=== PATIENT | male | born 1945 | race Caucasian/White ===

== ENCOUNTER 2017-05-06 23:29 | Observation (INO) | payer OTHER ==
[~2017-05-06] VITALS: Ht 185.4 cm; Wt 120.2 kg
[2017-05-06 23:41] VITALS: BP 135/78; PULSE 85; RESP 16; TEMP 97.8; O2SAT 96
[2017-05-06] MEDS ORDERED: ZOCO40TA PO (23:49)
[2017-05-06] MEDS ORDERED: ASPI-110 PO (23:49)
[2017-05-06] MEDS ORDERED: ENOX30P SQ (23:49)
[2017-05-06] MEDS ORDERED: HYDR-3580 PO (23:49)
[2017-05-07] MEDS ORDERED: MAGNESIUM CITRATE SOLN 300 ML BTL PO ONE (00:15)
--- NOTE | 2017-05-07 00:21 | PD ---
HPI Chief Complaint: GI Complaint Time Seen by Provider: 00:14 Travel History International Travel<30 days: No Contact w/Intl Traveler<30days: No Traveled to known affect area: No History of Present Illness HPI The patient is a 71-year-old male that had right hip replacement surgery on the of last month. He has not had a bowel movement since. The patient also has the urge to void but states he cannot. He states he has had feelings that he needs to urinate since 11:00 this morning but has not urinated. He states he also tried a fleets enema this afternoon without result. He states he took MiraLAX yesterday and today for this without result. They also gave him some MiraLAX on the of last . He has been taken hydrocodone 7.5 mg2 tablets every 6 hours. PFSH Past Medical History High Cholesterol: Yes Tetanus Vaccination: > 5 Years Influenza Vaccination: No Social History Alcohol Use: Yes (socially) Tobacco Use: No Substance Use: No Allergies-Medications (Allergen,Severity, Reaction): Coded Allergies: Penicillin (Verified Allergy, Severe, 05/06/17) Reported Meds & Prescriptions Reported Meds & Active Scripts Active Reported Lovenox Inj (Enoxaparin Sodium) 30 Mg/0.3 Ml Syr 30 Mg SQ DAILY Hydrocodone-Acetaminophen 7.5-325 mg Tab 2 Tab PO Q6H PRN Aspirin 81 (Aspirin) 81 Mg Tabdr 81 Mg PO DAILY Zocor (Simvastatin) 40 Mg Tab 40 Mg PO DAILY Review of Systems Except as stated in HPI: all other systems reviewed are Neg Physical Exam Narrative GENERAL: The patient is alert, oriented 3 in minimal apparent distress with his nausea and bladder discomfort. His vital signs are normal. SKIN: Focused skin assessment warm/dry. HEAD: Atraumatic. Normocephalic. EYES: Pupils equal and round. No scleral icterus. No injection or drainage. ENT: No nasal bleeding or discharge. Mucous membranes pink and moist. NECK: Trachea midline. No JVD. CARDIOVASCULAR: Regular rate and rhythm. No murmur appreciated. RESPIRATORY: No accessory muscle use. Clear to auscultation. Breath sounds equal bilaterally. GASTROINTESTINAL: Abdomen soft, non-tender, nondistended. Hepatic and splenic margins not palpable. MUSCULOSKELETAL: No obvious deformities. No clubbing. No cyanosis. No edema. NEUROLOGICAL: Awake and alert. No obvious cranial nerve deficits. Motor grossly within normal limits. Normal speech. PSYCHIATRIC: Appropriate mood and affect; insight and judgment normal. Data Data Last Documented VS Vital Signs Date Time Temp Pulse Resp B/P Pulse Ox O2 Delivery O2 Flow Rate FiO2 05/07/17 01:32 81 18 161/78 95 Room Air 05/06/17 23:41 97.8 Orders Sodium Chlor 0.9% 1000 Ml Inj (Ns 1000 M (05/07/17 00:15) Magnesium Citrate Liq (Citroma Liq) (05/07/17 00:15) Urinary Catheter Insert/Apply (05/07/17 00:21) Urinalysis - C+S If Indicated (05/07/17 00:22) Complete Blood Count With Diff (05/07/17 00:23) Basic Metabolic Panel (Bmp) (05/07/17 00:23) Magnesium (Mg) (05/07/17 01:00) Peg (High)/E-Lyte Liq (Colyte Liq) (05/07/17 02:00) Admit Order (Ed Use Only) (05/07/17 02:00) Ct Abd/Pel W Iv Contrast(Rout) (05/07/17 02:00) Labs Laboratory Tests Test 05/07/17 05/07/17 01:00 01:17 White Blood Count 12.8 TH/MM3 Red Blood Count 4.02 MIL/MM3 Hemoglobin 12.9 GM/DL Hematocrit 37.6 % Mean Corpuscular Volume 93.4 FL Mean Corpuscular Hemoglobin 32.0 PG Mean Corpuscular Hemoglobin 34.2 % Concent Red Cell Distribution Width 11.9 % Platelet Count 266 TH/MM3 Mean Platelet Volume 8.1 FL Neutrophils (%) (Auto) 81.8 % Lymphocytes (%) (Auto) 9.0 % Monocytes (%) (Auto) 7.2 % Eosinophils (%) (Auto) 1.8 % Basophils (%) (Auto) 0.2 % Neutrophils # (Auto) 10.6 TH/MM3 Lymphocytes # (Auto) 1.1 TH/MM3 Monocytes # (Auto) 0.9 TH/MM3 Eosinophils # (Auto) 0.2 TH/MM3 Basophils # (Auto) 0.0 TH/MM3 CBC Comment DIFF FINAL Differential Comment Sodium Level 140 MEQ/L Potassium Level 4.6 MEQ/L Chloride Level 102 MEQ/L Carbon Dioxide Level 29.3 MEQ/L Anion Gap 9 MEQ/L Blood Urea Nitrogen 28 MG/DL Creatinine 1.00 MG/DL Estimat Glomerular Filtration 74 ML/MIN Rate Random Glucose 110 MG/DL Calcium Level 9.2 MG/DL Magnesium Level 1.9 MG/DL Urine Collection Type CATH Urine Color YELLOW Urine Turbidity CLEAR Urine pH 5.5 Urine Specific [place] 1.027 Urine Protein NEG mg/dL Urine Glucose (UA) NEG mg/dL Urine Ketones NEG mg/dL Urine Occult Blood TRACE Urine Nitrite NEG Urine Bilirubin NEG Urine Leukocyte Esterase NEG Urine RBC 4-9 /hpf Urine Squamous Epithelial 0-5 /hpf Cells Urine Mucus OCC /lpf Microscopic Urinalysis Comment CATH-CULT NOT IND MDM Medical Decision Making Medical Screen Exam Complete: Yes Emergency Medical Condition: Yes Medical Record Reviewed: Yes Interpretation(s) The CBC shows a white count of 12,800 with a hemoglobin 12.9 and hematocrit of 37.6 but is otherwise unremarkable. The basic metabolic profile shows a BUN of 28, creatinine 1.0 but is otherwise normal. The magnesium level is 1.9this is normal. The urine shows trace occult blood, 4-9 red cells but is otherwise normal and culture is not indicated. Differential Diagnosis Opioid-induced ileus, opioid-induced bladder atony, SBOhighly unlikely, dehydration, electrolyte disorder, renal insufficiency Narrative Course The patient has opiate-induced ileus as well as bladder atony. He had almost 600 cc in his bladder. There is no evidence of obstruction, electrolyte disorder or renal insufficiency or other cause of his atony. At about 0230 the patient had a large bowel movement. He felt much better afterwards. Physician Communication Physician Communication I discussed the patient with Dr. Engel, the patient will be admitted to her for 23 hour observation. Diagnosis Primary Impression: Adynamic ileus Additional Impression: Bladder atony Admitting Information Admitting Physician Requests: Observation Wayne Benitez MD May 07, 2017 00:21
[2017-05-07 01:14] LABS: AUTOMATED NEUTROPHIL # 10.6 TH/MM3 (1.8-7.7); BASOPHIL % 0.2 % (0.0-2.0); EOSINOPHIL # 0.2 TH/MM3 (0-0.4); EOSINOPHIL % 1.8 % (0.0-4.0); HEMATOCRIT 37.6 % (39.0-51.0); HEMO FLAGS DIFF FINAL; LYMPHOCYTE # 1.1 TH/MM3 (1.0-4.8); MEAN CELL VOLUME 93.4 FL (80.0-100.0); MEAN CORPUSCULAR HGB CONC 34.2 % (32.0-36.0); MONO % 7.2 % (0.0-8.0); NEUT % 81.8 % (16.0-70.0); PLATELET COUNT 266 TH/MM3 (150-450); RED BLOOD COUNT 4.02 MIL/MM3 (4.50-5.90); RED CELL DISTRIBUTION WIDTH 11.9 % (11.6-17.2); WHITE BLOOD COUNT 12.8 TH/MM3 (4.0-11.0)
[2017-05-07 01:19] LABS: POTASSIUM 4.6 MEQ/L (3.5-5.1)
[2017-05-07 01:22] LABS: BLOOD, URINE TRACE (NEG); GLUCOSE,URINE NEG (NEG); KETONE, URINE NEG (NEG); NITRITE,URINE NEG (NEG); PH, URINE 5.5 (5.0-8.5)
[2017-05-07 01:22] LABS: BICARBONATE 29.3 MEQ/L (21.0-32.0)
[2017-05-07 01:30] LABS: METHOD OF COLLECTION CATH; MUCUS URINE OCC /lpf (OCC); URINE COLOR YELLOW (YELLW/STRAW)
[2017-05-07 01:31] LABS: SQUAMOUS EPITHELIAL CELL URINE 0-5 /hpf (0-5)
[2017-05-07 01:32] VITALS: BP 161/78; PULSE 81; RESP 18; O2SAT 95
[2017-05-07 01:32] LABS: COMMENT (UR) CATH-CULT NOT IND; CULTURE IF INDICATED CATH CULTURE NOT IND
[2017-05-07] MEDS: SODIUM CHLOR 0.9% 1000 ML INJ 1,000 ML IV SCH ×4 (01:38→09:04)
[2017-05-07 01:42] LABS: MAGNESIUM 1.9 MG/DL (1.5-2.5)
[2017-05-07] MEDS ORDERED: LACTULOSE SYRUP 20 GM/30 ML CUP PO PRN (02:00)
[2017-05-07] MEDS ORDERED: BISACODYL 10 MG SUPP RECTAL PRN (02:00)
[2017-05-07] MEDS ORDERED: ONDANSETRON HCL 4 MG/2 ML VIAL IVP PRN (02:00)
[2017-05-07] MEDS ORDERED: MAGNESIUM HYDROXIDE SUSP 30 ML CUP PO PRN (02:00)
[2017-05-07] MEDS ORDERED: ACETAMINOPHEN 325 MG TAB PO PRN (02:00)
[2017-05-07] MEDS ORDERED: ACETAMINOPHEN/HYDROcodone 325 MG/7.5 MG TAB PO PRN (02:00)
[2017-05-07] MEDS ORDERED: SENNOSIDES 8.6 MG TAB PO PRN (02:00)
[2017-05-07] MEDS ORDERED: MORPHINE SULFATE 4 MG/ML INJ IV PRN (02:00)
[2017-05-07] MEDS ORDERED: PEG (High)/E-LYTE SOLN 4000 ML BTL PO ONE (02:00)
[2017-05-07] MEDS ORDERED: SODIUM CHLORIDE 0.9% FLUSH 10 ML FLUSH IV FLUSH PRN (02:00)
[2017-05-07] MEDS ORDERED: DIATRIZOATE MEGLUM/DIATRIZOATE SOD 9 ML CUP ONE (02:09)
[2017-05-07] MEDS ORDERED: MORPHINE SULFATE 8 MG/ML INJ IV PUSH PRN (02:30)
[2017-05-07 03:38] VITALS: BP 181/84; PULSE 85; RESP 19; O2SAT 98
[2017-05-07] MEDS ORDERED: IOHEXOL 350 MG/ML 10 ML VIAL (for RAD DIAG) IV ONE (03:49)
[2017-05-07 04:00] VITALS: BP 156/85; PULSE 77; RESP 20; TEMP 97.5; O2SAT 98
--- NOTE | 2017-05-07 04:34 | RADRPT ---
EXAM DATE/TIME: 05/07/2017 03:29 [facility] COMPARISON: No previous studies available for comparison. INDICATIONS : Evaluate for obstruction. Constipation post hip replacement. IV CONTRAST: 100 cc Omnipaque 350 (iohexol) IV ORAL CONTRAST: Prescribed oral contrast ingested. RADIATION DOSE: 22.30 CTDIvol (mGy) MEDICAL HISTORY : None SURGICAL HISTORY : None. ENCOUNTER: Initial ACUITY: 1 month PAIN SCALE: 7/10 LOCATION: Bilateral abdomen. TECHNIQUE: Volumetric scanning of the abdomen and pelvis was performed. Using automated exposure control and ad justment of the mA and/or kV according to patient size, radiation dose was kept as low as reasonably achievable to obtain optimal diagnostic quality images. DICOM format image data is available electro nically for review and comparison. FINDINGS: LOWER LUNGS: The visualized lower lungs are clear. LIVER: Homogeneous density without dilation of the biliary tree. No calcified gallstones. Small low-density in the left lobe. SPLEEN: Normal size without lesion. PANCREAS: Within normal limits. KIDNEYS: Normal in size and shape. There is no mass, stone or hydronephrosis. Parapelvic renal cyst. ADRENAL GLANDS: Within normal limits. VASCULAR: There is no aortic aneurysm. BOWEL/MESENTERY: Mild distention of the stomach filled with fluid. The small bowel and colon demonstrate no acute abno rmality. There is no free intraperitoneal air or fluid. ABDOMINAL WALL: Within normal limits. RETROPERITONEUM: There is no lymphadenopathy. BLADDER: No wall thickening or mass. REPRODUCTIVE: Within normal limits. INGUINAL: There is no lymphadenopathy or hernia. MUSCULOSKELETAL: Right hip replacement. Degenerative changes lower lumbar spine. CONCLUSION: 1. Mild distention of the stomach filled with fluid. No bowel obstruction. 2. Hepatic low-density, likely benign. 3. Bilateral parapelvic renal cysts. 4. Right hip replacement. Yaniv Wakefield MD on May 07, 2017 at 4:28 Board Certified Radiologist. This report was verified electronically.
[2017-05-07 08:00] VITALS: BP 156/79; PULSE 81; RESP 20; TEMP 97.7; O2SAT 96
--- NOTE | 2017-05-07 08:39 | HHI.HP ---
HPI Service [facility] Primary Care Physician Rukhsana Del Rio MD Admission Diagnosis opiate-induced ileus, opioid-induced bladder atony Diagnoses: Chief Complaint: Abdominal pain, constipation Travel History International Travel<30 Days: No Contact w/Intl Traveler <30 Da: No Traveled to Known Affected Are: No History of Present Illness Mr. Ayon is a pleasant 71-year-old male with a history of hyperlipidemia who presented to the emergency department on 05/07/2017 due to abdominal pain and constipation. Patient underwent right total hip arthroplasty on 05/01/2017. He has not had a bowel movement since he underwent hip replacement surgery. Despite taking multiple medications at home he did not have a bowel movement which prompted him to come to the emergency department. Patient received mag citrate and GoLYTELY which caused large bowel movement and subsequently patient felt much better. Patient denies any chest pain, shortness of breath, fever or chills. Currently he feels that he is at his baseline. Wants to go home. Review of Systems Except as stated in HPI: all other systems reviewed are Neg Past Family Social History Past Medical History Hyperlipidemia, osteoarthritis Past Surgical History Hand surgery, recent right hip surgery. Reported Medications Lovenox Inj (Enoxaparin Sodium) 30 Mg/0.3 Ml Syr 30 Mg SQ DAILY Hydrocodone-Acetaminophen 7.5-325 mg Tab 2 Tab PO Q6H PRN Aspirin 81 (Aspirin) 81 Mg Tabdr 81 Mg PO DAILY Zocor (Simvastatin) 40 Mg Tab 40 Mg PO DAILY Allergies: Coded Allergies: Penicillin (Verified Allergy, Severe, 05/06/17) Family History No family history of Alzheimer's dementia or Parkinson's disease. Social History Patient denies using tobacco or illicit drugs. He drinks alcohol socially. Physical Exam Vital Signs Vital Signs Date Time Temp Pulse Resp B/P Pulse Ox O2 Delivery O2 Flow Rate FiO2 05/07/17 04:00 97.5 77 20 156/85 98 05/07/17 03:38 85 19 181/84 98 Room Air 05/07/17 01:32 81 18 161/78 95 Room Air 05/06/17 23:41 97.8 85 16 135/78 96 Physical Exam GENERAL: This is a well-nourished, well-developed patient, in no apparent distress. SKIN: No rashes, ecchymoses or lesions. Warm and dry. HEAD: Atraumatic. Normocephalic. No temporal or scalp tenderness. EYES: Pupils equal round and reactive. No injection or drainage. ENT: Nose without bleeding, purulent drainage or septal hematoma. Airway patent. NECK: Trachea midline. No lymphadenopathy. Supple, nontender, no meningeal signs. CARDIOVASCULAR: Regular rate and rhythm without murmurs, gallops, or rubs. No JVD. RESPIRATORY: Clear to auscultation. Breath sounds equal bilaterally. No wheezes , rales, or rhonchi. GASTROINTESTINAL: Abdomen soft, non-tender, nondistended. No guarding. MUSCULOSKELETAL: Extremities without clubbing, cyanosis, or edema. NEUROLOGICAL: Awake and alert. Cranial nerves II through XII intact. No focal neurological deficits. Normal speech. Laboratory Laboratory Tests Test 05/07/17 05/07/17 01:00 01:17 White Blood Count 12.8 Red Blood Count 4.02 Hemoglobin 12.9 Hematocrit 37.6 Mean Corpuscular Volume 93.4 Mean Corpuscular Hemoglobin 32.0 Mean Corpuscular Hemoglobin 34.2 Concent Red Cell Distribution Width 11.9 Platelet Count 266 Mean Platelet Volume 8.1 Neutrophils (%) (Auto) 81.8 Lymphocytes (%) (Auto) 9.0 Monocytes (%) (Auto) 7.2 Eosinophils (%) (Auto) 1.8 Basophils (%) (Auto) 0.2 Neutrophils # (Auto) 10.6 Lymphocytes # (Auto) 1.1 Monocytes # (Auto) 0.9 Eosinophils # (Auto) 0.2 Basophils # (Auto) 0.0 CBC Comment DIFF FINAL Differential Comment Sodium Level 140 Potassium Level 4.6 Chloride Level 102 Carbon Dioxide Level 29.3 Anion Gap 9 Blood Urea Nitrogen 28 Creatinine 1.00 Estimat Glomerular Filtration 74 Rate Random Glucose 110 Calcium Level 9.2 Magnesium Level 1.9 Urine Collection Type CATH Urine Color YELLOW Urine Turbidity CLEAR Urine pH 5.5 Urine Specific [place] 1.027 Urine Protein NEG Urine Glucose (UA) NEG Urine Ketones NEG Urine Occult Blood TRACE Urine Nitrite NEG Urine Bilirubin NEG Urine Leukocyte Esterase NEG Urine RBC 4-9 Urine Squamous Epithelial 0-5 Cells Urine Mucus OCC Microscopic Urinalysis Comment CATH-CULT NOT IND Result Diagram: 05/07/179905/07/1799 Imaging Last Impressions Abdomen/Pelvis CT 05/07/17199 Signed Impressions: Service Date/Time: Sunday, May 07, 2017 03:29 - CONCLUSION: 1. Mild distention of the stomach filled with fluid. No bowel obstruction. 2. Hepatic low-density, likely benign. 3. Bilateral parapelvic renal cysts. 4. Right hip replacement. Yaniv Wakefield MD Assessment and Plan Problem List: (1) Constipation due to pain medication ICD Code: K59.03 Status: Acute (2) Hyperlipidemia ICD Code: E78.5 Status: Acute Assessment and Plan Mr. Ayon is a pleasant 71 year old male who has not had any bowel movement since his right total hip arthroplasty on 05/01/2017 and presented to the ED due to abdominal pain and constipation. After Mag citrate and GoLYTELY, patient had large BM and feels much better. - Constipation due to opioid pain medication use - Patient plans to use non-opioid pain medications. - He was encouraged to take laxatives as well if he takes opioid pain meds. - Right hip osteoarthritis - s/p right RAHEEL on 05/01/[address] Neil Alva - Patient will continue Lovenox SQ for 7 more days. - Follow up with Dr. Alva as previously arranged. - Continue home health. - Hyperlipidemia - continue statin. Full code. Discharge patient to home Condition on discharge: Improved Regular Diet as tolerated Ad Raine activity Rx written: Colace over the counter medications PRN. Follow-up with primary care physician within one week and Orthopedic surgery as previously scheduled. Ariana Marsh DO May 07, 2017 8:39 am
[2017-05-07] MEDS ORDERED: COLA100C PO (08:42)
[2017-05-07] MEDS ORDERED: ENOXAPARIN SODIUM 30 MG/0.3 ML SYRINGE SQ SCH (09:00)
[2017-05-07] MEDS ORDERED: DOCUSATE SODIUM 50 MG/SENNA 8.6 MG TAB PO SCH (09:00)
[2017-05-07] MEDS ORDERED: SODIUM CHLORIDE 0.9% FLUSH 10 ML FLUSH IV FLUSH SCH (09:00)
[2017-05-07] MEDS ORDERED: ASPIRIN EC 81 MG TABEC PO SCH (09:00)
[2017-05-07] MEDS ORDERED: PRAVASTATIN SOD 80 MG TAB PO SCH (09:00)
== END 2017-05-07 12:33 | disposition home or self-care (01) ==
LOC: PHED 23:29 → PHEDA 05-07 02:03 → PH3A 05-07 03:48
PROVIDERS: ADMIT Hospitalist; ATTEND Hospitalist
DX: K59.03 Drug induced constipation (principal); K56.0 Paralytic ileus; N31.2 Flaccid neuropathic bladder, not elsewhere classified; T40.2X5A Adverse effect of other opioids, initial encounter; R11.0 Nausea; N28.1 Cyst of kidney, acquired; R14.0 Abdominal distension (gaseous); E78.5 Hyperlipidemia, unspecified; E78.00 Pure hypercholesterolemia, unspecified; M19.90 Unspecified osteoarthritis, unspecified site; Z79.899 Other long term (current) drug therapy; Z79.82 Long term (current) use of aspirin; Z96.641 Presence of right artificial hip joint
CPT/HCPCS: 51702; 74177; 80048; 81001; 83735; 85025; 99285; G0378; J1650; J7030; Q9963; Q9967